=== PATIENT | female | born 1975 ===

== ENCOUNTER 2016-12-08 20:35 | Emergency (ER) | payer OTHER ==
[2016-12-08 20:54] VITALS: TEMP 98.1; O2SAT 99; BMI 43.9
--- NOTE | 2016-12-08 23:10 | ED PDOC ---
Arrival/HPI - General Chief Complaint: Hip Pain Time Seen by Provider: 12/08/16 20:52 Historian: Patient - History of Present Illness Narrative History of Present Illness (Text): 12/08/16 23:07 41-year-old female presents today with left hip and left sided back pain radiating into the left leg. Patient states she has a history of sciatica and has been dealing with problems in her left hip for a while. Patient states she has MRI scheduled but today developed worsening pain in the left side of the hip and back. Patient denies any recent trauma or lifting injury but states she does do heavy lifting at home. Patient states she recently brought in the groceries. Patient states pain is worse if she sits for a long period of time. She denies numbness weakness or tingling in the extremities. No chest pain or shortness of breath. Patient states she took tramadol before she came in. It seemed to help the pain a little bit. Denies abdominal pain. No fevers or chills. No other complaints Symptom Onset: Gradual Symptom Course: Worsening Quality: Aching, Stabbing Severity Level: 8 Past Medical History - Provider Review Nursing Documentation Reviewed: Yes - Travel History Have you recently traveled outside [place] w/in the past 3 mons?: No - Infectious Disease Hx of Infectious Diseases: None - Psychiatric Hx Substance Use: No - Surgical History Hx Musculoskeletal Surgery: Yes (l knee sx) - Anesthesia Hx Anesthesia: Yes Hx Anesthesia Reactions: No Family/Social History - Physician Review Nursing Documentation Reviewed: Yes Family/Social History: Unknown Family HX Smoking Status: Never Smoked Hx Alcohol Use: No Hx Substance Use: No Allergies/Home Meds Allergies/Adverse Reactions: Allergies pineapple Allergy (Verified 12/08/16 20:56) ANGIOEDEMA Home Medications: Home Meds Medication Instructions Recorded Confirmed traMADol [Ultram] 50 mg PO PRN PRN 12/08/16 12/08/16 Review of Systems - Review of Systems Constitutional: absent: Fatigue, Fevers Respiratory: absent: SOB, Cough Cardiovascular: absent: Chest Pain, Palpitations Gastrointestinal: absent: Abdominal Pain, Nausea, Vomiting Genitourinary Female: absent: Dysuria, Frequency, Hematuria Musculoskeletal: Arthralgias (left hip pain), Back Pain. absent: Neck Pain Skin: absent: Rash, Pruritis Neurological: absent: Headache, Dizziness Psychiatric: absent: Anxiety, Depression Physical Exam Vital Signs Reviewed: Yes Vital Signs Temp Pulse Resp BP Pulse Ox 12/08/16 20:54 98.1 F 70 19 128/64 99 Temperature: Afebrile Blood Pressure: Normal Pulse: Regular Respiratory Rate: Normal Appearance: Positive for: Well-Appearing, Non-Toxic, Comfortable Pain Distress: None Mental Status: Positive for: Alert and Oriented X 3 - Systems Exam Head: Present: Atraumatic Mouth: Present: Moist Mucous Membranes Neck: Present: Normal Range of Motion Respiratory/Chest: Present: Clear to Auscultation, Good Air Exchange. No: Respiratory Distress, Accessory Muscle Use Cardiovascular: Present: Regular Rate and Rhythm, Normal S1, S2. No: Murmurs Abdomen: No: Tenderness, Rebound, Guarding Back: Present: Normal Inspection, Paraspinal Tenderness (+ minimal left lower paraspinal tenderness). No: CVA Tenderness, Midline Tenderness Upper Extremity: Present: Normal Inspection Lower Extremity: Present: Normal Inspection, Normal ROM, Neurovascularly Intact , Capillary Refill < 2 s, Other (pain with abduction of left hip; ). No: Tenderness, Swelling, Erythema, Deformity Neurological: Present: GCS=15 Skin: Present: Warm, Dry, Normal Color. No: Rashes Psychiatric: Present: Alert, Oriented x 3 Medical Decision Making ED Course and Treatment: 12/08/16 23:10 Patient nontoxic well-appearing in no distress with stable vital signs. Toradol IM. Patient took tramadol prior to arrival. Extremities the left hip: No fracture X-ray of the lumbar spine: No fracture Patient reassessment: Feeling better with medications ambulating with a steady gait. Muscle strength 5 out of 5 bilaterally. I advised to followup with the orthopedist within the next 2 days. Return if symptoms worsen persist or new symptoms develop Patient verbalizes understanding of discharge instructions and need for immediate followup. all aspects of this case were discussed the attending of record. Impression: Back pain, hip pain Motrin every 6 hours as needed for pain Continue tramadol as prescribed Followup with the orthopedist within the next 2 days Followup with primary care physician within the next 2 days Return if symptoms worsen persist or if new symptoms develop - RAD Interpretation Radiology Orders: 12/08/16 21:53 Hip Left [HIP MIN 2V W/ PELVIS LT] [RAD] Stat LS SPINE WITH OBL > 18 YRS OLD [RAD] Stat - Medication Orders Current Medication Orders: Discontinued Medications Ketorolac Tromethamine (Toradol) 60 mg IM STAT STA Stop: 12/08/16 21:53 Last Admin: 12/08/16 22:17 Dose: 60 mg Disposition/Present on Arrival - Present on Arrival Any Indicators Present on Arrival: No History of DVT/PE: No History of Uncontrolled Diabetes: No Urinary Catheter: No History of Decub. Ulcer: No History Surgical Site Infection Following: None - Disposition Have Diagnosis and Disposition been Completed?: Yes Diagnosis: Back pain, Hip pain Disposition: HOME/ ROUTINE Disposition Time: 23:12 Patient Plan: Discharge Condition: GOOD Discharge Instructions (ExitCare): Back Pain (ED), Hip Pain (ED) Additional Instructions: Motrin every 6 hours as needed for pain Continue tramadol as prescribed Followup with the orthopedist within the next 2 days Followup with primary care physician within the next 2 days Return if symptoms worsen persist or if new symptoms develop Prescriptions: Ibuprofen [Motrin] 600 mg PO Q6H PRN #20 tab PRN Reason: pain/fever reduction Referrals: Oneal Alford MD [Primary Care Provider] - Follow up with primary Fabian Wilkes MD [Staff Provider] - Follow up with primary Forms: WORK NOTE
[2016-12-08 23:16] VITALS: BP 113/68; PULSE 75; RESP 20
--- NOTE | 2016-12-09 09:46 | RAD ---
PROCEDURE: Left Hip and pelvis X-ray Radiographs. HISTORY: hip pain COMPARISON: None. FINDINGS: BONES: Normal. No fracture. JOINTS: Normal. SOFT TISSUES: Normal. OTHER FINDINGS: None. IMPRESSION: Negative study
--- NOTE | 2016-12-09 09:47 | RAD ---
PROCEDURE: Radiographs of the Lumbar Spine. HISTORY: left sided back pain into hip and left leg COMPARISON: No prior. FINDINGS: BONES: Normal alignment. No listhesis. No fracture. DISC SPACES: Unremarkable. OTHER FINDINGS: None. IMPRESSION: Unremarkable radiographs of the lumbar spine.
== END 2016-12-08 23:24 | disposition home or self-care (01) ==
LOC: ED 20:35
DX: M25.552 Pain in left hip (principal); M54.9 Dorsalgia, unspecified
CPT/HCPCS: 72110; 73502; 96372; 99284; J1885

== ENCOUNTER 2017-01-08 18:52 | Emergency (ER) | payer OTHER ==
[2017-01-08 18:53] VITALS: BMI 43.9
[2017-01-08 19:03] VITALS: RESP 16; TEMP 98.6
--- NOTE | 2017-01-08 19:45 | ED PDOC ---
Arrival/HPI - General Historian: Patient - History of Present Illness Time/Duration: 4-6 hours Symptom Onset: Sudden Symptom Course: Unchanged Activities at Onset: Sleeping Context: Home <Syl Carreno - Last Filed: 01/08/17 23:20> <ShruthiLynn - Last Filed: 01/09/17 00:04> - General Chief Complaint: Upper Extremity Problem/Injury Time Seen by Provider: 01/08/17 19:14 - History of Present Illness Narrative History of Present Illness (Text): 01/08/17 19:41 Patient is a 41 y/o with PMH of hld, morbidly obese, lap band, iron deficiency anemia, sciatica presenting with lower extremities edema. Patient states she woke up with the lower extremities edema. She thought it was an inflammation thus decided to take ibuprofen with no relief. patient states the legs are painless, she decided to come in because she wasn't able to walk up the stairs because the leg felt tense. Patient denies chest pain, sob, n/v/d. Patient denies cardiac history, can walk multiple blocks without getting sob. Denies long distance travel, except going to [place] over the weekend. No h/o DVTs and PEs. (Syl Carreno) Associated Symptoms (Text): 01/08/17 21:51 None (Syl Carreno) Past Medical History - Provider Review Nursing Documentation Reviewed: Yes - Travel History Have you recently traveled outside US w/in the past 3 mons?: No - Past History Past History: No Previous - Infectious Disease Hx of Infectious Diseases: None - Cardiac Hx Cardiac Disorders: No - Pulmonary Hx Respiratory Disorders: No - Neurological Hx Neurological Disorder: No - HEENT Hx HEENT Disorder: No - Renal Hx Renal Disorder: No - Endocrine/Metabolic Hx Endocrine Disorders: No - Hematological/Oncological Hx Blood Disorders: No - Integumentary Hx Dermatological Disorder: No - Musculoskeletal/Rheumatological Hx Back Pain: Yes Other/Comment: L KNEE INJURY - Gastrointestinal Hx Gastrointestinal Disorders: No - Genitourinary/Gynecological Hx Genitourinary Disorders: No - Psychiatric Hx Psychophysiologic Disorder: No Hx Substance Use: No - Surgical History Hx Musculoskeletal Surgery: Yes (l knee sx) - Anesthesia Hx Anesthesia: Yes Hx Anesthesia Reactions: No <Syl Carreno - Last Filed: 01/08/17 23:20> Family/Social History - Physician Review Nursing Documentation Reviewed: Yes Family/Social History: No Known Family HX Smoking Status: Never Smoked Hx Alcohol Use: No Hx Substance Use: No <Syl Carreno - Last Filed: 01/08/17 23:20> Allergies/Home Meds <Syl Carreno - Last Filed: 01/08/17 23:20> <HsruthiLynn - Last Filed: 01/09/17 00:04> Allergies/Adverse Reactions: Allergies pineapple Allergy (Verified 01/08/17 18:54) ANGIOEDEMA Home Medications: Home Meds Medication Instructions Recorded Confirmed traMADol [Ultram] 50 mg PO PRN PRN 12/08/16 01/08/17 Review of Systems - Review of Systems Constitutional: Normal Eyes: Normal ENT: Normal Respiratory: Normal Cardiovascular: Normal Gastrointestinal: Normal Genitourinary Female: Normal Musculoskeletal: Back Pain, Joint Swelling Skin: Normal Neurological: Normal Endocrine: Normal Hemo/Lymphatic: Normal Psychiatric: Normal <Syl Carreno - Last Filed: 01/08/17 23:20> Physical Exam Appearance: Positive for: Well-Appearing, Non-Toxic, Comfortable Pain Distress: None Mental Status: Positive for: Alert and Oriented X 3 - Systems Exam Head: Present: Atraumatic, Normocephalic Pupils: Present: PERRL Extroacular Muscles: Present: EOMI Mouth: Present: Moist Mucous Membranes Neck: Present: Normal Range of Motion Respiratory/Chest: Present: Clear to Auscultation, Good Air Exchange. No: Respiratory Distress, Accessory Muscle Use, Wheezes, Rales, Rhonchi Cardiovascular: Present: Regular Rate and Rhythm, Normal S1, S2. No: Murmurs Abdomen: Present: Normal Bowel Sounds. No: Tenderness, Distention Upper Extremity: Present: Normal Inspection. No: Edema Lower Extremity: Present: Edema (+ 3 on the left and + 2 on the right. ), NORMAL PULSES, Normal ROM, Swelling, Other ( + ecchymosis and psider angioma. ) . 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 Less likely cellulites. 01/08/17 19:52 Plan: CBC, CMP, BNP, TROP CHEST X-RAY EKG And reevaluate Discussed with Dr Hawkins. 01/08/17 21:20 LE Doppler negative for DVT. Normal trop and pro bnp. Chest x-ray normal, no pleural effusion or pulm congestion. (Syl Carreno) Patient seen and examined with resident - came up with plan together. Results with no acute findings. No cp or sob. EKG showing nonspecific T wave changes; no cp and CE negative - discussed with patient the results and informed to f/u pmd for it - patient will be d/c to use compressive stockings and leg elevation and will f/u pmd. (Lynn Hawkins) - Lab Interpretations Lab Results: 01/08/17 19:50 01/08/17 19:50 Lab Results 01/08/17 19:50: Sodium 136, Potassium 4.1, Chloride 102, Carbon Dioxide 28, Anion Gap 10, BUN 15, Creatinine 0.6, Est GFR ( Amer) > 60, Est GFR (Non- Af Amer) > 60, Random Glucose 89, Calcium 8.7, Total Bilirubin 0.3, AST 24, ALT 21, Alkaline Phosphatase 59, Troponin I < 0.01, NT-Pro-B Natriuret Pep 92.3, Total Protein 7.1, Albumin 3.6, Globulin 3.5, Albumin/Globulin Ratio 1.0 L 01/08/17 19:50: WBC 3.7 L, RBC 3.74, Hgb 10.9 L, Hct 34.1 L, MCV 91.2, MCH 29.1 , MCHC 32.0, RDW 13.7, Plt Count 297, MPV 10.6, Neutrophils % (Manual) 47 L, Lymphocytes % (Manual) 48 H, Monocytes % (Manual) 4, Eosinophils % (Manual) 1 - RAD Interpretation Narrative RAD Interpretations (Text): 01/08/17 21:19 Lap band clippers. Normal chest x-ray. (Syl Carreno) Radiology Orders: 01/08/17 19:38 CHEST ONE VIEW [RAD] Stat 01/08/17 19:40 DUPLEX LOWER EXTRM VEIN BILAT [US] Stat - EKG Interpretation EKG Interpretation (Text): 01/08/17 21:26 NSR, HR @ 57 BPM, Normal axis. Non pathologic Q waves on lead II, II, and AVF. 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 SHELLEY has examined the patient and agrees with the treatment plan. <Lynn Hawkins - Last Filed: 01/09/17 00:04> Disposition/Present on Arrival - Present on Arrival Any Indicators Present on Arrival: Yes History of DVT/PE: No History of Uncontrolled Diabetes: No Urinary Catheter: No History of Decub. Ulcer: No History Surgical Site Infection Following: None - Disposition Have Diagnosis and Disposition been Completed?: Yes Disposition Time: 21:30 Patient Plan: Discharge <Syl Carreno - Last Filed: 01/08/17 23:20> <Lynn Hawkins - Last Filed: 01/09/17 00:04> - Disposition Diagnosis: Venous insufficiency of both lower extremities Diagnosis: (Ruled Out): Venous stasis Disposition: HOME/ ROUTINE Condition: STABLE Discharge Instructions (ExitCare): Venous Insufficiency (GEN) Additional Instructions: Please keep your legs elevated. Use compression stockings daily. Go to the nearest emergency room if you experience chest pain, shortness of breath, or fever. Referrals: Oneal Alford MD [Primary Care Provider] - Follow up with primary
[2017-01-08 20:29] LABS: HEMATOCRIT 34.1 % (36.0-48.0); MEAN CELL VOLUME 91.2 fL (80.0-105.0); MEAN CORPUSCULAR HEMOGLOBIN 29.1 pg (25.0-35.0); MEAN PLATELET VOLUME 10.6 fl (7.0-11.0); PLATELET COUNT 297 10^3/uL (120.0-450.0); RED CELL DISTRIBUTION WIDTH 13.7 % (11.5-14.5); WHITE BLOOD COUNT 3.7 10^3/ul (4.5-11.0)
[2017-01-08 20:35] LABS: ADD MANUAL DIFF? YES; ALKALINE PHOSPHATASE 59 U/L (38-133); ALT/SGPT 21 U/L (7-56); AST/SGOT 24 U/L (15-39); BILIRUBIN,TOTAL 0.3 mg/dL (0.2-1.3); BLOOD UREA NITROGEN 15 mg/dL (7-21); CALCIUM 8.7 mg/dL (8.4-10.5); CARBON DIOXIDE 28 mmol/L (21-33); CHLORIDE 102 mmol/L (98-107); GFR AFRICAN-AMERICAN > 60; GLUCOSE,RANDOM 89 mg/dL (70-110); POTASSIUM 4.1 mmol/L (3.6-5.0); SODIUM 136 mmol/L (132-148); TOTAL PROTEIN 7.1 g/dL (5.8-8.3)
[2017-01-08 20:51] LABS: TROPONIN I < 0.01 ng/mL
[2017-01-08 21:58] LABS: EOSINOPHIL 1 % (0.0-3.0); NEUTROPHIL 47 % (50.0-70.0)
[2017-01-08 22:07] VITALS: BP 115/78; PULSE 62; O2SAT 99
--- NOTE | 2017-01-09 09:43 | RAD ---
PROCEDURE: CHEST RADIOGRAPH, 1 VIEW HISTORY: lower extremities edema COMPARISON: None available. FINDINGS: LUNGS: Clear. PLEURA: No pneumothorax or pleural fluid seen. CARDIOVASCULAR: Normal. OSSEOUS STRUCTURES: No significant abnormalities. VISUALIZED UPPER ABDOMEN: Normal. OTHER FINDINGS: None. IMPRESSION: No active disease.
--- NOTE | 2017-01-09 11:57 | US ---
HISTORY: Leg pain and swelling. Evaluate for DVT PHYSICIAN(S): Mauro Damon MD. TECHNIQUE: Duplex sonography and color-flow Doppler with graded compression were used to evaluate the deep venous systems of both lower extremities. The exam is limited by body habitus and edema. FINDINGS: The visualized deep venous systems of both lower extremities are sonographically normal and compressible. Normal wave forms and augmentation are seen. There is no sonographic evidence for deep venous thrombosis in the visualized segments of both lower extremities. IMPRESSION: No sonographic evidence for deep venous thrombosis in the visualized segments of both lower extremities. Limited study.
--- NOTE | 2017-01-10 16:17 | CARD ---
APPROVED REPORT EKG Measurement Heart [id number] <Conclusion> Sinus bradycardia Possible Inferior infarct, age undetermined Cannot rule out Anterior infarct, age undetermined Abnormal ECG
== END 2017-01-08 22:02 | disposition home or self-care (01) ==
LOC: ED 18:52
DX: I87.2 Venous insufficiency (chronic) (peripheral) (principal); E66.01 Morbid (severe) obesity due to excess calories

== ENCOUNTER 2017-03-17 13:44 | Emergency (ER) | payer OTHER ==
[2017-03-17 13:45] VITALS: BMI 43.9
[2017-03-17 14:03] VITALS: BP 118/62; RESP 16; TEMP 98; O2SAT 98
--- NOTE | 2017-03-17 14:14 | ED PDOC ---
Arrival/HPI - General Historian: Patient - History of Present Illness Time/Duration: Prior to Arrival Symptom Onset: Sudden Symptom Course: Improving Quality: Pressure Severity Level: 10, Severe - General Chief Complaint: Chest Pain Time Seen by Provider: 03/17/17 13:54 - History of Present Illness Narrative History of Present Illness (Text): 03/17/17 14:25 41yo F with PMHx of Asthma here for evaluation of right sided chest pain. Pain described as severe pressure, located deep within the chest, radiates to the right side of the chest. She states that she was sitting down at work when the pain started. Denies any significant stressors. She states that the pain was severe for about one hour, associated with shortness of breath. Denies any fevers or chills. Does report a 4.5 hour there and 4.5 hours back car ride to chart picker her daughter last weekend. Currently, pain has improved moderately. No current SOB. No Abd pain. No N/V/D. no Headaches. PMHx: Asthma PSHx: Lap Band. 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 Denies Tobacco, Denies ETOH, Denies any illicit drugs Allergy: Pineapple (Brett,Surya) Past Medical History - Provider Review Nursing Documentation Reviewed: Yes - Past History Past History: No Previous - Infectious Disease Hx of Infectious Diseases: None - Cardiac Hx Cardiac Disorders: No - Pulmonary Hx Respiratory Disorders: No - Neurological Hx Neurological Disorder: No - HEENT Hx HEENT Disorder: No - Renal Hx Renal Disorder: No - Endocrine/Metabolic Hx Endocrine Disorders: No - Hematological/Oncological Hx Blood Disorders: No - Integumentary Hx Dermatological Disorder: No - Musculoskeletal/Rheumatological Hx Musculoskeletal Disorders: Yes Hx Back Pain: Yes Other/Comment: L KNEE INJURY - Gastrointestinal Hx Gastrointestinal Disorders: No - Genitourinary/Gynecological Hx Genitourinary Disorders: No - Psychiatric Hx Psychophysiologic Disorder: No Hx Substance Use: No - Surgical History Hx Section: Yes Hx Gastric Bypass Surgery: Yes (lap band) Hx Musculoskeletal Surgery: Yes (l knee sx) - Anesthesia Hx Anesthesia: Yes Hx Anesthesia Reactions: No Family/Social History - Physician Review Nursing Documentation Reviewed: Yes Family/Social History: No Known Family HX Smoking Status: Never Smoked Hx Alcohol Use: No Hx Substance Use: No Allergies/Home Meds Allergies/Adverse Reactions: Allergies pineapple Allergy (Verified 03/17/17 13:59) ANGIOEDEMA Home Medications: Home Meds Medication Instructions Recorded Confirmed No Known Home Med 03/17/17 03/17/17 Review of Systems - Physician Review All systems were reviewed & negative as marked: Yes - Review of Systems Constitutional: absent: Fatigue, Fevers Eyes: absent: Vision Changes ENT: absent: Hearing Changes, Tinnitus Respiratory: SOB. absent: Cough, Wheezing Cardiovascular: Chest Pain, KEENAN. absent: Palpitations, Edema, Calf Pain Gastrointestinal: absent: Abdominal Pain, Nausea, Vomiting, Anorexia Genitourinary Female: absent: Dysuria, Frequency Musculoskeletal: Back Pain. absent: Arthralgias Skin: absent: Rash Neurological: absent: Headache, Dizziness Endocrine: absent: Diaphoresis Psychiatric: absent: Anxiety, Depression Physical Exam Vital Signs Reviewed: Yes Temperature: Afebrile Blood Pressure: Normal Pulse: Regular Respiratory Rate: Normal Appearance: Positive for: Well-Appearing, Non-Toxic, Comfortable Pain Distress: Mild Mental Status: Positive for: Alert and Oriented X 3 - Systems Exam Head: Present: Atraumatic, Normocephalic Extroacular Muscles: Present: EOMI Conjunctiva: Present: Normal Mouth: Present: Moist Mucous Membranes. No: Dry Neck: Present: Normal Range of Motion. No: JVD Respiratory/Chest: Present: Clear to Auscultation, Good Air Exchange. No: Respiratory Distress, Accessory Muscle Use, Wheezes Cardiovascular: Present: Regular Rate and Rhythm. No: Murmurs Abdomen: No: Tenderness, Distention, Peritoneal Signs, Rebound, Guarding Back: No: CVA Tenderness, Midline Tenderness Upper Extremity: Present: Normal Inspection, Normal ROM, NORMAL PULSES. No: Edema Lower Extremity: Present: Normal Inspection, NORMAL PULSES, Normal ROM. No: Edema, CALF TENDERNESS Neurological: Present: GCS=15 Skin: Present: Warm, Dry, Normal Color. No: Rashes Psychiatric: Present: Alert, Oriented x 3 Medical Decision Making ED Course and Treatment: 03/17/17 14:44 41yo F with Chest Pain and SOB - Hx sig for recent long car ride - CBC/CMP - Troponin - EKG: interpreted by me. NSR @71. No apparent ST changes. - D-Dimer - CXR - ASA 325 03/17/17 15:42 D-Dimer elevated. - CTA ordered. - Patient now c/o abd pain. Morphine IVP. 03/17/17 17:54 CTA negative for PE. - Discussed findings with patient. Told the patient that we would need to repeat troponin to rule out ACS. Patient states that she would like to sign out against medical advice as she is worried that her car will be towed. She states that she has already contacted her Primary care physician and he plans to do follow up blood work this week. Patient made aware of the risks and still requests to leave. Patient to follow up with her Systems Security Consultant and her PMD. (Surya West) A 41 year old female with chest pain. In agreement with resident note, which includes further HPI details. Patient was seen and evaluated with resident, came up with plan and treatment together. Patient has atypical story for acs and only risk factor is obesity. EKG shows NSR at 71 BPM with normal intervals, no ST/T changes. Interpreted by me. Cxray negative. CTA negative for PE. Trop x 1 negative. Patient was recommended to stay for repeat troponin but reported that she needed to leave ED. She was AAox3 and understood the risks of signing out AMA, including but not limited to: heart attack and and she reports that she wants to leave. She was instructed to follow-up with PMD. (Hallie Harris) - Lab Interpretations Lab Results: 03/17/17 14:40 03/17/17 14:40 Lab Results 03/17/17 14:40: Sodium 139, Potassium 4.1, Chloride 106, Carbon Dioxide 25, Anion Gap 12, BUN 12, Creatinine 0.6, Est GFR ( Amer) > 60, Est GFR (Non- Af Amer) > 60, Random Glucose 94, Calcium 8.6, Total Bilirubin 0.4, AST 20, ALT 24, Alkaline Phosphatase 56, Lactate Dehydrogenase 508, Total Creatine Kinase 63 , Troponin I < 0.01, Total Protein 7.2, Albumin 3.9, Globulin 3.3, Albumin/ Globulin Ratio 1.2 03/17/17 14:40: WBC 4.6 D, RBC 4.10, Hgb 11.6 L, Hct 35.7 L, MCV 87.1, MCH 28.3 , MCHC 32.5, RDW 14.9 H, Plt Count 302, MPV 10.5, Gran % 50.1, Lymph % (Auto) 39.2 H, [place] % (Auto) 8.9 H, Eos % (Auto) 1.1 L, Baso % (Auto) 0.7, Gran # 2.30 , Lymph # 1.8, [place] # 0.4, Eos # 0.1, Baso # 0.03 03/17/17 14:40: D-Dimer, Quantitative 0.54 H - RAD Interpretation Radiology Orders: 03/17/17 14:12 CHEST PORTABLE [RAD] Stat 03/17/17 15:14 ANGIO CHEST PE PROTOCOL [CT] Stat - Medication Orders Current Medication Orders: Discontinued Medications Aspirin (Aspirin) 325 mg PO STAT STA Stop: 03/17/17 14:12 Last Admin: 03/17/17 14:51 Dose: 325 mg Iodixanol (Visipaque 320 Mg/Ml 100 Ml) Confirm Administered Dose 100 ml IV .STK- MED ONE Stop: 03/17/17 15:24 Morphine Sulfate (Morphine) 2 mg IVP STAT STA Stop: 03/17/17 16:05 Last Admin: 03/17/17 16:17 Dose: Not Given Non-Admin Reason: Patient Refused - 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 / has examined the patient and agrees with the treatment plan. Disposition/Present on Arrival - Present on Arrival Any Indicators Present on Arrival: No History of DVT/PE: No History of Uncontrolled Diabetes: No Urinary Catheter: No History of Decub. Ulcer: No History Surgical Site Infection Following: None - Disposition Have Diagnosis and Disposition been Completed?: Yes Disposition Time: 18:02 - Disposition Diagnosis: Chest pain Disposition: AGAINST MEDICAL ADVICE Patient Problems: Current Active Problems Problem Status Onset Chest pain Acute Condition: STABLE Discharge Instructions (ExitCare): Chest Pain (ED) Referrals: PCP,NO [Primary Care Provider] - Follow up with primary Forms: mValent (Burkinan)
[2017-03-17 14:52] LABS: BASO # 0.03 K/mm3 (0.0-2.0); BASO % 0.7 % (0.0-3.0); EOS # 0.1 (0.0-0.7); EOS % 1.1 % (1.5-5.0); GRAN # 2.3 (1.4-6.5); GRAN % 50.1 % (50.0-68.0); HEMATOCRIT 35.7 % (36.0-48.0); LYMPH # 1.8 (1.2-3.4); LYMPH % 39.2 % (22.0-35.0); MEAN CELL VOLUME 87.1 fl (80.0-105.0); MEAN CORPUSCULAR HEMOGLOBIN 28.3 pg (25.0-35.0); MEAN CORPUSCULAR HGB CONC 32.5 g/dl (31.0-37.0); MEAN PLATELET VOLUME 10.5 fl (7.0-11.0); MONO # 0.4 (0.1-0.6); MONO % 8.9 % (1.0-6.0); RED CELL DISTRIBUTION WIDTH 14.9 % (11.5-14.5); WHITE BLOOD COUNT 4.6 10^3/ul (4.5-11.0)
[2017-03-17 15:00] LABS: ALB/GLOB RATIO 1.2 (1.1-1.8); ALKALINE PHOSPHATASE 56 U/L (38-133); ALT/SGPT 24 U/L (7-56); AST/SGOT 20 U/L (15-39); BILIRUBIN,TOTAL 0.4 mg/dL (0.2-1.3); BLOOD UREA NITROGEN 12 mg/dL (7-21); CALCIUM 8.6 mg/dL (8.4-10.5); CARBON DIOXIDE 25 mmol/L (21-33); CHLORIDE 106 mmol/L (98-107); GFR AFRICAN-AMERICAN > 60; GLUCOSE,RANDOM 94 mg/dL (70-110); POTASSIUM 4.1 mmol/L (3.6-5.0); SODIUM 139 mmol/L (132-148); TOTAL PROTEIN 7.2 g/dL (5.8-8.3)
[2017-03-17 15:03] VITALS: PULSE 79
[2017-03-17 15:11] LABS: TROPONIN I < 0.01 ng/mL
[2017-03-17] MEDS ORDERED: Iodixanol 320 MG/ML 100 ML BOTTLE IV ONE (15:23)
[2017-03-17] MEDS ORDERED: Morphine 2 mg/ml ISec IVP STA (16:04)
--- NOTE | 2017-03-17 17:43 | CT ---
CTA chest PE protocol Indication: Chest pain, elevated D-dimer Technique: Contiguous axial images were obtained through the chest with intravenous contrast enhancement. Sagittal and coronal reconstructions were generated and reviewed. This CT exam was performed using 1 or more of the falling dose reduction techniques: Automated exposure control, adjustment of the MAA and/or kV according to patient size, and/or use of iterative reconstruction technique. IV Contrast: 100 cc Visipaque 320 Radiation dose (DLP): 815.16 MGy-cm. Comparison: Chest x-ray performed 01/08/17 Findings: Visualized portions of the inferior thyroid gland appear unremarkable. The mediastinal and hilar vascular structures appear within normal limits. The heart appears within normal limits of size. No large central or segmental pulmonary embolus evident. No focal consolidation. No pleural effusion. No pneumothorax. 3 mm right upper lobe pulmonary nodule (series 3, image 67). Gastric lap band. Limited visualized portions of the upper abdomen appear grossly unremarkable. No acute osseous abnormality is detected. Impression: No large central or segmental pulmonary embolus identified. 3 mm right upper lobe pulmonary nodule. In the absence of risk factors for lung cancer, no specific imaging follow-up is required. If the patient is a smoker or has other risk factors, follow-up CT at 12 months is recommended to document stability. Gastric lap band.
--- NOTE | 2017-03-17 17:44 | RAD ---
HISTORY: chest pain COMPARISON: CTA chest performed the same day. TECHNIQUE: Chest, one view. FINDINGS: Emanation limited by habitus and hypoinflation. LUNGS: No focal consolidation. Please note that chest x-ray has limited sensitivity for the detection of pulmonary masses. PLEURA: No significant pleural effusion identified. No definite pneumothorax . CARDIOVASCULAR: The cardiomediastinal silhouette appears within normal limits of size. OSSEOUS STRUCTURES: No acute osseous abnormality identified. VISUALIZED UPPER ABDOMEN: Elevation of the right hemidiaphragm. Gastric lap band. OTHER FINDINGS: None. IMPRESSION: No focal consolidation, significant pleural effusion, or definite pneumothorax identified.
--- NOTE | 2017-03-17 19:10 | CARD ---
APPROVED REPORT EKG Measurement Heart [id number] <Conclusion> Normal sinus rhythm Normal ECG
== END 2017-03-17 18:02 | disposition left against medical advice (07) ==
LOC: ED 13:44
DX: R07.9 Chest pain, unspecified (principal)
CPT/HCPCS: 71010; 71275; 80053; 82550; 83615; 84484; 85025; 85378; 93005; 99282; Q9967